=== PATIENT | male | born 1975 | race Caucasian/White ===

== ENCOUNTER 2017-10-08 14:54 | Emergency (ER) | payer OTHER ==
[~2017-10-08] VITALS: Ht 170.2 cm; Wt 81.6 kg
[~2017-10-08 14:54] MED LIST: AVELOX ABC PAC400 MG PO
== END 2017-10-08 18:06 | disposition home or self-care (01) ==
LOC: ER 14:54
DX: S80.872A Other superficial bite, left lower leg, initial encounter (principal); S80.871A Other superficial bite, right lower leg, initial encounter; L08.9 Local infection of the skin and subcutaneous tissue, unspecified; W57.XXXA Bitten or stung by nonvenomous insect and other nonvenomous arthropods, initial encounter; Y93.89 Activity, other specified; Y92.89 Other specified places as the place of occurrence of the external cause; Y99.8 Other external cause status

== ENCOUNTER 2018-04-23 09:24 | Emergency (ER) | payer OTHER ==
[~2018-04-23] VITALS: Ht 170.2 cm; Wt 83.9 kg
[2018-04-23] MEDS ORDERED: MUPIROCIN22 GM TOP (11:50)
[2018-04-23] MEDS ORDERED: HIBICLENS118 ML TOP (11:50)
[2018-04-23] MEDS ORDERED: BACTRIM DS TAB1 EACH PO (11:50)
[2018-04-23] MEDS ORDERED: IBUPROFEN800 MG PO (11:50)
== END 2018-04-23 12:31 | disposition home or self-care (01) ==
LOC: ER 09:24
DX: L02.415 Cutaneous abscess of right lower limb (principal)

== ENCOUNTER 2018-04-24 23:43 | Emergency (ER) | payer OTHER ==
[~2018-04-24] VITALS: Ht 170.2 cm; Wt 83.9 kg
[~2018-04-24 23:43] MED LIST changes: +BACTRIM DS TAB1 EACH PO; +HIBICLENS118 ML TOP; +IBUPROFEN800 MG PO; +MUPIROCIN22 GM TOP
[2018-04-25] MEDS ORDERED: KETO10TA2 PO (07:50)
== END 2018-04-25 08:50 | disposition home or self-care (01) ==
LOC: ER 23:43
DX: L03.115 Cellulitis of right lower limb (principal)

== ENCOUNTER → 2018-09-02 | Emergency (ER) | payer OTHER ==
[~2018-09-02] VITALS: Ht 170.2 cm; Wt 86.2 kg
[~2018-09-02] MED LIST changes: +KETO10TA2 PO; +NORFLEX100MG PO
== END | disposition home or self-care (01) ==
LOC: ER 22:03
DX: M54.5 Low back pain (principal)

== ENCOUNTER 2024-07-01 06:52 | Emergency (ER) | payer OTHER ==
[~2024-07-01] VITALS: Ht 170.2 cm; Wt 90.7 kg
[2024-07-01] MEDS ORDERED: TRUVADA 100 MG1 EACH (07:26)
[2024-07-01] MEDS ORDERED: KETOROLAC TROMETHAMINE 30 MG VIAL IM STA (10:25)
[2024-07-01] MEDS ORDERED: ORPHENADRINE CITRATE 30 MG/ML AMPUL IM STA (10:25)
[2024-07-01] MEDS ORDERED: KETOROLAC TROMETHAMINE 60 MG VIAL IM ONE (10:57)
[2024-07-01] MEDS ORDERED: ORPHENADRINE CITRATE 30 MG/ML AMPUL ONE (10:57)
[2024-07-01 11:47] LABS: PH,URINE 7.5 (5.0-8.0); URINE BILIRRUBIN Negative (NEGATIVE); URINE BLOOD Negative; URINE COLOR Yellow; URINE GLUCOSE Negative (NEGATIVE); URINE KETONE Negative (NEGATIVE); URINE LEUKOCYTE Trace; URINE NITRATE Negative; URINE PROTEIN Negative (NEGATIVE)
[2024-07-01 11:48] LABS: URINE BACTERIA 15.8 uL (0.0-1933); URINE RBC 12.3 uL (0.0-20.8); URINE WBC 12.6 uL (0.0-23.2)
[2024-07-01 11:59] LABS: URINE EPITHELIAL CELLS 0.6 uL (0.0-38.8)
[2024-07-01 12:00] LABS: HEMATOCRIT 45.7 % (39.0-48.0); HEMOGLOBIN 15.6 g/dL (13-16.00); MEAN CORPUSCULAR HEMOGLOBIN 31.4 pg (27.00-32.0); MEAN CORPUSCULAR HGB CONC 34.1 g/dl (32.0-36.0); PLATELET COUNT 228 K/uL (150-450); RED BLOOD COUNT 4.97 M/uL (4.00-6.00); RED CELL DISTRIBUTION WIDTH 14.4 % (11.5-14.5); URINE APPEARANCE CLEAR
[2024-07-01 12:41] LABS: CALCIUM 8.9 mg/dL (8.5-10.1); CREATININE SERUM 0.78 mg/dL (0.70-1.30); GFR 105.36; POTASSIUM 4.2 mEq/L (3.5-5.1)
== END 2024-07-01 13:20 | disposition home or self-care (01) ==
LOC: ER 06:54
PROVIDERS: General Practice
DX: M54.89 Other dorsalgia (principal)